=== PATIENT | female | born 1960 | race Caucasian/White ===

== ENCOUNTER 2019-06-29 21:13 | Emergency (ER) | payer OTHER ==
[~2019-06-29] VITALS: Ht 162.6 cm; Wt 63.5 kg
[2019-06-29] MEDS ORDERED: PAXIL10 MG PO (21:31)
[2019-06-29] MEDS ORDERED: WELLBUTRIN XL300 MG PO (21:31)
[2019-06-29 23:01] LABS: ABSOLUTE NEUTROPHILS 2.2 thou/uL (1.4-8.2); BASOPHILS 0.8 % (0.0-2.0); EOSINOPHILS 2.1 % (0.0-3.0); HEMATOCRIT 37.3 % (37.0-47.0); HEMOGLOBIN 12.3 gm/dL (12.0-15.0); LYMPHOCYTES 46.3 % (24.0-44.0); MCH 28.2 pg (26.0-34.0); MCV 85.3 fL (80.0-100.0); MONOCYTES 8.3 % (1.0-8.0); PLATELET COUNT 263 thou/uL (150-400); POLYS 42.5 % (36.0-66.0); RBC 4.38 mil/uL (4.20-5.00); RDW 17.8 % (10.5-14.5); WBC 5.1 thou/uL (4.0-11.0)
[2019-06-29 23:03] LABS: ANION GAP 13 mmol/L (7-16); BUN 14 mg/dL (7-18); CALCIUM 9.1 mg/dL (8.5-10.1); CHLORIDE 103 mmol/L (98-107); CO2 23 mmol/L (21-32); GLUCOSE 124 mg/dL (74-106); POTASSIUM 3.9 mmol/L (3.5-5.1); SODIUM 139 mmol/L (136-145)
[2019-06-29 23:12] LABS: TROPONIN-I <0.06 ng/mL (<0.06)
[2019-06-30 01:26] VITALS: BP 105/68
--- NOTE | 2019-06-30 08:48 | EKG ---
[facility] [place] [address] ELECTROCARDIOGRAM REPORT Name: JOAN ROBLES Room #: DEP LAURA Rondon#: [id number] ������������������ Admission: 06/29/19 ������������������ Attend Phys: Discharge: 06/30/19 ������������������ Date of : 64 Report #: [id number] ����������������������������������������������������������������� [id number] THIS REPORT FOR: //name// [facility] ED Test Date: 2019-06-29 Test Time: 23:29:49 Pat Name: JOAN ROBLES Department: Room: Gender: F Apartment Maintenance Worker: : 1960 Requested By: Leighton Torres Order Number: [id number] MD: Rasta Barber Measurements Intervals [place] Rate: 87 P: 43 AK: 164 QRS: 57 QRSD: 108 T: 29 QT: 359 QTc: 432 Interpretive Statements Sinus rhythm RSR' in V1 or V2, right VCD No previous ECG available for comparison Electronically Signed On 06-30-2019 8:48:08 CDT by Rasta Barber [email or web address] ��������������������������������������������� <ELECTRONICALLY SIGNED> ���������������������������������������� By: Rasta Barber MD, [facility] ��������������������������������������������� 06/30/19 [id number] Rasta Barber MD, FACC /EPI
== END 2019-06-30 02:23 | disposition home or self-care (01) ==
LOC: ER 21:13
PROVIDERS: Emergency Medicine
DX: M25.532 Pain in left wrist (principal); R11.2 Nausea with vomiting, unspecified; Z79.899 Other long term (current) drug therapy; W18.39XA Other fall on same level, initial encounter; Y93.89 Activity, other specified; Y92.89 Other specified places as the place of occurrence of the external cause; Y99.8 Other external cause status